=== PATIENT | male | born 1975 | race Caucasian/White ===

== ENCOUNTER 2017-01-24 04:19 | Emergency (ER) | payer MEDICARE, MEDICAID, SELFPAY ==
--- NOTE | 2017-01-25 00:04 | ER ---
ADMIT: 01/24/2017 RM/LOC: ER [facility] MR#: [id number] [address] LEONIE GIBBS C [address] [address] Emergency Room Report SEX: M AGE: 41 : 1975 DATE: 01/24/2017 TIME: 4:19 Please refer to my T-sheet for complete H and P. HISTORY OF PRESENT ILLNESS: Briefly, the patient is a 41-year-old, comes in with back pain. He has chronic back problems, but he was helping a friend move yesterday and now it is hurting worse. He drove here, he is having no bowel or bladder complaints and hurts with moves. PHYSICAL EXAMINATION: VITAL SIGNS: Stable. MUSCULOSKELETAL: His back, he has tenderness in the lower lumbar spine. It does go down his right leg a little bit, but he is neurovascularly intact distally. EMERGENCY DEPARTMENT COURSE: He did drive here. I gave him Toradol 60 mg IM. We filled 6 Norcos here, and he is going to keep his followup appointment. He was improved. ASSESSMENT: Acute on chronic back pain. PLAN: Banner 5 mg, I gave him #6. Return if worse. Keep his appointment with his pain specialist. Use Motrin. Edgar Bravo MD/ edilia JOB #: [id number] CC: Edgar Bravo MD, Attending Physician Wandy Martini APRN-[facility], Family Physician
== END 2017-01-24 05:17 | disposition home or self-care (01) ==
LOC: ER 04:19
DX: G89.29 Other chronic pain (principal); M54.5 Low back pain; G47.30 Sleep apnea, unspecified; F31.9 Bipolar disorder, unspecified

== ENCOUNTER 2017-02-05 08:32 | Emergency (ER) | payer MEDICARE, MEDICAID, SELFPAY ==
--- NOTE | 2017-02-12 10:31 | ER ---
ADMIT: 02/05/2017 RM/LOC: ER [facility] MR#: [id number] [address] LEONIE GIBBS [address] [address] Emergency Room Report SEX: M AGE: 41 : 1975 DATE: 02/05/2017 ADDENDUM: A 41-year-old male coming in with chronic pain. He has been seen here several times. He has an appointment with the pain doctor tomorrow, which he should keep. We did give him 60 mg Toradol IM x1 and then, again, reoccur, encourage him to follow up. CONDITION ON DISCHARGE: Good. Nolan Martinez MD/ edilia JOB #: [id number] CC: Nolan Martinez MD, Attending Physician Wandy Martini APRN-[facility]IA DEL CARMEN, Family Physician
== END 2017-02-05 09:15 | disposition home or self-care (01) ==
LOC: ER 08:32
DX: G89.29 Other chronic pain (principal); M79.604 Pain in right leg; F31.9 Bipolar disorder, unspecified; F41.9 Anxiety disorder, unspecified; Z79.899 Other long term (current) drug therapy

== ENCOUNTER 2017-02-06 03:19 | Emergency (ER) | payer MEDICARE, MEDICAID, SELFPAY ==
--- NOTE | 2017-02-06 07:27 | ER ---
ADMIT: 02/06/2017 RM/LOC: ER [facility] MR#: [id number] [address] LEONIE GIBBS [address] [address] Emergency Room Report SEX: M AGE: 41 : 1975 DATE: 02/06/2017 The patient is a 41-year-old male seen yesterday morning by Dr. Martinez, given a shot of Toradol for what sounds like acute gouty arthritis, slept all afternoon, woke up this evening, did laundering, had increased pain right lateral ankle and foot. Denies any prior history of gout or injury. Exam remarkable for acutely uncomfortable, obese male, tender to palpation right lateral malleolus and forefoot. Given a shot of Toradol with marked improvement of pain. Percocet 5/325 one p.o. at discharge, indomethacin 25 mg t.i.d. p.r.n. #30. Elevate, rest, heat. Follow up Wandy Martini as needed. Bimal Day MD/ edilia JOB #: [id number] CC: Bimal Day MD, Attending Physician Wandy Martini APRN-[facility]IA DEL CARMEN, Family Physician WILLIAM Thornton
== END 2017-02-06 04:40 | disposition home or self-care (01) ==
LOC: ER 03:19
DX: M10.9 Gout, unspecified (principal); F31.9 Bipolar disorder, unspecified

== ENCOUNTER 2017-02-14 08:03 | Day surgery (SDC) | payer MEDICARE, MEDICAID, SELFPAY ==
[~2017-02-14] VITALS: Ht 167.6 cm; Wt 123.0 kg
--- NOTE | 2017-02-16 08:05 | OR ---
ADMIT: 02/14/2017 RM/LOC: [facility] MR#: [id number] [address] [address] LEONIE GIBBS [address] [place] [address] Operative/Delivery Room Report SEX: M AGE: 41 : 1975 SURGERY DATE: 02/14/2017 SURGEON: Pina Delacruz MD TECHNICAL DESIGNER: None. PREPROCEDURE DIAGNOSES: 1. Lumbar disc degeneration. 2. Lumbosacral neuritis. POSTPROCEDURE DIAGNOSES: 1. Lumbar disc degeneration. 2. Lumbosacral neuritis. PROCEDURE PERFORMED: L5-S1 interlaminar epidural steroid injection. INDICATIONS FOR PROCEDURE: The patient is a pleasant gentleman with history of chronic low back pain secondary to above-mentioned diagnoses, comes here for planned lumbar epidural steroid injection. ANESTHESIA: Local without sedation. ESTIMATED BLOOD LOSS: Zero. COMPLICATIONS: None immediately evident. DESCRIPTION OF PROCEDURE: After the patient was seen in the preoperative area, vitals signs were taken. Prior to the procedure, the risks, benefits, and alternative therapies were discussed at length. Patient consent was obtained and updated. The patient was taken to the fluoroscopy suite and placed on the fluoroscopy table in the prone position. Pressure points were padded to comfort, monitors applied, and a timeout performed. Fluoroscopy was brought in. The patient was sterilely prepped and draped in the usual manner with ChloraPrep solution, and 1% lidocaine was used to anesthetize the appropriate needle entry site. Utilizing a midline approach, ADMIT: 02/14/2017 RM/LOC: [facility] MR#: [id number] [id number] [address] LEONIE GIBBS [address] [place] [id number] Operative/Delivery Room Report SEX: M AGE: 41 : 1975 continuous loss of resistance technique with preservative-free normal saline and intermittent fluoroscopic guidance, the posterior epidural space was easily entered. Once the epidural space had been entered through L5-S1. The patient was injected with 2 mL of Isovue-300 and outlining of the posterior epidural space was observed with no evidence of vascular uptake and intrathecal migration. Next, a solution consisting of 10 mL of preservative- free normal saline and 80 mg of Depo-Medrol was injected. The needle was withdrawn. The patient was escorted back to the preoperative area and observed for a period of time. PLAN: Discharge instructions were given, followup scheduled. 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 Pina Delacruz MD/ edilia JOB #: [id number] CC: Pina Delacruz, Attending Physician Wandy Martini, Family Physician
== END 2017-02-14 09:55 | disposition home or self-care (01) ==
LOC: SSS 08:03
PROC: 3E0S33Z Introduction of Anti-inflammatory into Epidural Space, Percutaneous Approach (ICD-10-PCS; principal; 2017-02-14)
PROC: 3E0S3BZ Introduction of Anesthetic Agent into Epidural Space, Percutaneous Approach (ICD-10-PCS; principal; 2017-02-14)
PROC: B01BYZZ Fluoroscopy of Spinal Cord using Other Contrast (ICD-10-PCS; principal; 2017-02-14)
DX: G89.29 Other chronic pain (principal); M51.17 Intervertebral disc disorders with radiculopathy, lumbosacral region; M47.816 Spondylosis without myelopathy or radiculopathy, lumbar region; Z79.899 Other long term (current) drug therapy; Z79.82 Long term (current) use of aspirin

== ENCOUNTER → 2017-03-14 | Outpatient (CLI) | payer MEDICARE | END | disposition home or self-care (01) | LOC: RAD.S 16:00 | DX: M25.562 Pain in left knee (principal); M25.561 Pain in right knee ==

== ENCOUNTER → 2017-04-03 | Outpatient (CLI) | payer MEDICARE, SELFPAY | END | disposition home or self-care (01) | LOC: RAD.S 06:58 | DX: M54.5 Low back pain (principal); M51.86 Other intervertebral disc disorders, lumbar region; M51.36 Other intervertebral disc degeneration, lumbar region; R29.898 Other symptoms and signs involving the musculoskeletal system; M48.06 Spinal stenosis, lumbar region ==